=== PATIENT | male | born 1965 | race Caucasian/White ===

== ENCOUNTER 2017-11-14 09:08 | Outpatient (CLI) | payer OTHER ==
[2017-11-14 10:12] LABS: eGFR (Non-African) > 60
== END 2017-11-14 09:10 ==
LOC: LAB 09:08
PROVIDERS: ATTEND Physician Assistant
DX: I10 Essential (primary) hypertension (principal); Z13.6 Encounter for screening for cardiovascular disorders
CPT/HCPCS: 36415; 80053; 80061

== ENCOUNTER 2017-12-16 08:10 | Day surgery (SDC) | payer OTHER ==
[2017-12-16] MEDS ORDERED: SALINE FLUSH 10 ML DISP.SYRIN IVF ONE (08:30)
[2017-12-16] MEDS ORDERED: PROPOFOL 200 MG/20 ML VIAL IV ONE (12:00)
[2017-12-16] MEDS ORDERED: LACTATED RINGERS 1,000 ML IV ONE (12:00)
--- NOTE | 2017-12-18 09:32 | GI Report ---
REFERRING PHYSICIAN: ROLANDO Almaraz CRAB MEAT PROCESSOR: Edgard Hoffmann MD PROCEDURE MEDICATION: Propofol as per anesthesia. INDICATIONS: Patient is 52 years old and referred for a screening colonoscopy. He denies change in bowel habits or bleeding. Of note, he has been a cigarette smoker for 34 years. He apparently had a mini stroke a number of years ago. He is 5 feet 8 inches and weighs 207. He does have hypertension but no family history of colorectal cancer. PROCEDURE PERFORMED: Colonoscopy and polypectomy PROCEDURE: An Olympus video colonoscope was advanced to the rectum. At 60 cm, which was near the splenic flexure, it appeared to be in the transverse colon, patient had about a 4 mm to 5 mm polyp removed with a cold snare. The colonoscope was advanced all the way to the cecum. The appendiceal orifice and terminal ileum looked normal. On slow withdrawal, the cecum, ascending colon, and transverse colon with no obvious intraluminal lesions until you got back to the polyp there at the splenic flexure. The descending colon and sigmoid with no obvious intraluminal lesions noted. Retroflexion of the rectum was normal. Patient tolerated the procedure well. FINDINGS: Colon polyp removed near the splenic flexure. RECOMMENDATIONS: 1. Pending the pathology, follow up colonoscopy in 5 years. 2. Increase fiber in the diet. 3. Recommend strongly he discontinue tobacco usage. 4. Follow up with Magnolia Pacheco in the office. cc: ROLANDO Almaraz
== END 2017-12-16 08:11 ==
LOC: OPSURG 08:10
PROVIDERS: ATTEND Internal Medicine Gastroenterology
DX: Z12.11 Encounter for screening for malignant neoplasm of colon (principal); D12.3 Benign neoplasm of transverse colon; I10 Essential (primary) hypertension
CPT/HCPCS: 45385; S1016

== ENCOUNTER 2018-10-01 12:51 | Outpatient (CLI) | payer OTHER ==
--- NOTE | 2018-10-01 13:33 | Diagnostic Imaging Report ---
CHRISTOPHER EVANS [facility] [address] [facility].[address] [id number] Report Submission Date: Oct 01, 2018 1:29:01 PM CDT Patient Study Name: MARIA DEL CARMEN AVILES Date: Oct 01, 2018 12:53:25 PM CDT Modality Type: DX Gender: M Description: SHOULDER 2 VIEWS OR MORE : 69 Institution: [facility] Physician: CHRISTOPHER EVANS Right shoulder 2 views Clinical history: Injury No visible fracture, dislocation or bone destruction. an acromion spur. No soft tissue calcifications. No radiopaque foreign bodies. Impression: hooked type acromion. No fractures Electronically signed on Oct 01, 2018 1:29:01 PM CDT by: Leandro EM
== END 2018-10-01 15:53 ==
LOC: RAD 12:51
PROVIDERS: ATTEND Nurse Practitioner Family
DX: S49.91XA Unspecified injury of right shoulder and upper arm, initial encounter (principal); X58.XXXA Exposure to other specified factors, initial encounter; Y99.8 Other external cause status
CPT/HCPCS: 73030

== ENCOUNTER 2018-12-29 18:52 | Emergency (ER) | payer OTHER ==
--- NOTE | 2018-12-29 19:10 | ED Physician Documentation ---
General Adult - HISTORIAN Historian: patient - HPI Stated Complaint: laceration Chief Complaint: Laceration/Recheck/Suture Additional Information: Patient presents to ED with lacerations to right index and right middle finger. Patient sustained 1cm lacerations to posterior portions of both fingers across the PIP while open a grain truck dump door just prior to arrival. He is unsure of last tetanus vaccine. Onset: minutes (30) Timing: still present Severity: mild - ROS CONST: no problems EYES/ENT: none CVS/RESP: none GI/: none MS/SKIN/LYMPH: none - PAST HX Past History: other (seizure disorder, HTN) Other History: none Surgeries/Procedures: none Immunizations: denies: tetanus Allergies/Adverse Reactions: Allergies Allergy/AdvReac Type Severity Reaction Status Date / Time No Known Drug Allergies Allergy Verified 12/29/18 19:22 Home Medications: Ambulatory Orders Medication Instructions Recorded Aspirin 81 mg PO DAILY u2 09/14/14 Levetiracetam [Keppra] 3,000 mg PO d u2 09/14/14 Amoxicillin/Potassium Clav 1 each PO Q12 #14 tablet 12/29/18 [Augmentin 875-125 Tablet] HYDROcodone /APAP 5/325 [[place] 1 each PO Q4 PRN #15 tablet 12/29/18 5/325] Lacosamide [Vimpat] 50 mg PO AM 12/29/18 Lacosamide [Vimpat] 100 mg PO HS 12/29/18 - SOCIAL HX Smoking History: non-smoker Alcohol Use: none Drug Use: none - FAMILY HX Family History: No - VITAL SIGNS Vital Signs: Vital Signs Temp Pulse Resp BP Pulse Ox 97.7 F 69 16 142/75 96 12/29/18 18:52 12/29/18 18:52 12/29/18 18:52 12/29/18 18:52 12/29/18 18:52 - REVIEWED ASSESSMENTS Nursing Assessment Reviewed: Yes Vitals Reviewed: Yes Procedures Wound Location: upper extremity (right ring finger and middle finger) Wound's Depth, Shape: linear Wound Explored: clean Betadine Prep?: Yes Anesthesia: 1% Lidocaine Volume of Anesthetic: 20 ml Wound Debrided: moderate Wound Repaired With: sutures Suture Size/Type: 4:0 Number of Sutures: 10 Layer Closure?: No Sterile Dressing Applied?: Yes Splint Applied?: Yes (yao taped) Type of Splint Applied: yao tape Sling Applied?: No ED Results Lab/Radiology - Orders Orders: ED Orders Category Date Time Status Cleanse with NS and Chlorhexid 1T Care 12/29/18 19:20 Active HAND 3 VIEWS OR MORE [RAD] Stat Exams 12/29/18 Ordered Diph,Pertuss(Acell),Tet Vac/Pf [Adacel] Med 12/29/18 19:10 Discontinued 0.5 ml IM .ONCE ONE HYDROcodone /APAP 5/325 [[place] 5/325] Med 12/29/18 20:17 Discontinued 1 each PO NOW ONE Lidocaine 1% 20ml ([place]) [Xylocaine] Med 12/29/18 19:10 Discontinued 10 mg IM NOW ONE General Adult Physical Exam - PHYSICAL EXAM GENERAL APPEARANCE: no distress EENT: EDWAR NECK: supple RESPIRATORY: no resp distress, chest non-tender, breath sounds normal CVS: reg rate & rhythm, heart sounds normal ABDOMEN: soft, normal bowel sounds BACK: normal inspection SKIN: warm/dry EXTREMITIES: non-tender, other (right index, right middle finger 1 cm laceration to both at PIP joint) NEURO: oriented X3, sensation nml, mood/affect nml Discharge Clincal Impression: Fracture of middle phalanx of finger of right hand Laceration of finger of right hand Qualifiers: Encounter type: initial encounter Finger: index finger Damage to nail status: without damage Foreign body presence: without foreign body Qualified Code(s): S61.210A - Laceration without foreign body of right index finger without damage to nail, initial encounter Laceration of finger Qualifiers: Encounter type: initial encounter Finger: middle finger Damage to nail status: without damage Foreign body presence: without foreign body Laterality: right Qualified Code(s): S61.212A - Laceration without foreign body of right middle finger without damage to nail, initial encounter Fracture of middle phalanx of finger Qualifiers: Encounter type: initial encounter Finger: index finger Fracture type: closed Fracture alignment: nondisplaced Laterality: right Qualified Code(s): S62.650A - Nondisplaced fracture of middle phalanx of right index finger, initial encounter for closed fracture Prescriptions: Amoxicillin/Potassium Clav [Augmentin 875-125 Tablet] 1 each PO Q12 #14 tablet HYDROcodone /APAP 5/325 [[place] 5/325] 1 each PO Q4 PRN #15 tablet PRN Reason: finger pain Referrals: Annamaria Burgos MD [Primary Care Provider] - 2 Days Additional Instructions: 1. Keep fingers yao taped at all times. Take antibiotics until gone. 2. Follow up with Dr. Bui on Monday December 31, 2018. His office will contact you with appt time 3. Ibuprofen 800mg every 8 hours as needed for pain 4. [place] 5/325mg every 4 hours as needed for break through pain. 5. Light duty until released by Dr. Bui 6. Follow up with PCP in 10 days for suture removal. 7. Return to ER for new or worsening symptoms Condition: Stable Disposition: 01 HOME, SELF-CARE Decision to Admit: NO Date of Decison to Admit: 12/29/18 Decision Time: 21:03
[2018-12-29 19:21] VITALS: BP 142/75
[2018-12-29] MEDS: LIDOCAINE HCL 1% MDV 200MG/20ML VIAL IM ONE (19:42)
[2018-12-29] MEDS: HYDROcodone /APAP 5/325 1 EACH TABLET PO ONE ×2 (20:30→20:58)
[2018-12-29] MEDS: DIPH,PERTUSS(ACELL),TET VAC/PF 0.5 ML DISP.SYRIN IM ONE (20:30)
--- NOTE | 2018-12-30 10:02 | Diagnostic Imaging Report ---
[facility] [address] [facility] [address] Patient Name: MARIA DEL CARMEN AVILES Referring Physician: KIKE BYNUM Date of : 1965 Gender: M Date of Service: 12/29/2018 Exam Requested: HAND 3 VIEWS OR MORE HISTORY: 53-year-old male with right hand pain after injury. COMPARISON: None TECHNIQUE: Three views of the left hand were performed. FINDINGS: There are comminuted displaced fractures of the right second and third finger middle phalanges. Both fractures likely extend to the PIP joints. No other fractures are identified about the left hand. No significant degenerative changes. IMPRESSION: Study positive for displaced comminuted fractures of the right hand second and third middle phalanges with intra-articular extension to the PIP joints. A ANTONIA
== END 2018-12-29 21:12 | disposition home or self-care (01) ==
LOC: ED 18:52
DX: S61.210A Laceration without foreign body of right index finger without damage to nail, initial encounter (principal); S61.212A Laceration without foreign body of right middle finger without damage to nail, initial encounter; S62.650A Nondisplaced fracture of middle phalanx of right index finger, initial encounter for closed fracture; W30.89XA Contact with other specified agricultural machinery, initial encounter
CPT/HCPCS: 12001; 73130; 90471; 90715; 96374; 99284; A9270; J7030